=== PATIENT | female | born 1980 | race Caucasian/White ===

== ENCOUNTER 2016-10-22 05:26 | Inpatient (IN) | payer SELFPAY ==
[2016-10-22] MEDS ORDERED: Carboprost Tromethamine 250 MCG/1 ML Amp IM PRN (05:57)
[2016-10-22] MEDS ORDERED: Ampicillin 2 GM in Sodium Chloride 0.9% 100 ML IV ONE (05:57)
[2016-10-22] MEDS ORDERED: Sodium Chloride 0.9% 10 ML Syringe FLUSH PRN (05:57)
[2016-10-22] MEDS ORDERED: Sodium Chloride 0.9% 2.5 ML Syringe FLUSH PRN (05:57)
[2016-10-22] MEDS ORDERED: Nalbuphine 10 MG/1 ML Vial IVPUSH PRN ×3 (05:57→18:22)
[2016-10-22] MEDS ORDERED: Methylergonovine 0.2 MG/1 ML Amp IM PRN (05:57)
[2016-10-22] MEDS ORDERED: Butorphanol 1 MG/ML SDV IVPUSH PRN (05:57)
[2016-10-22] MEDS ORDERED: Lidocaine 1% 50 ML MDV INJECT PRN (05:57)
[2016-10-22] MEDS ORDERED: Water For Irrigation,Sterile 1,000 ML Container IRR PRN (05:57)
[2016-10-22] MEDS ORDERED: Misoprostol 200 MCG Tab PO PRN (05:57)
[2016-10-22] MEDS ORDERED: Oxytocin/Lactated Ringers 30 UNIT/500 ML BAG IV SCH (06:00)
[2016-10-22] MEDS: Lactated Ringers 1,000 ML IV SCH ×3 (06:23→10:56)
--- NOTE | 2016-10-22 08:58 | PCM.LDHP ---
L&D History of Present Illness - General Date of Service: 10/22/16 Admit Problem/Dx: Patient Status Order with Admit Dx/Problem 10/22/16 05:57 Patient Status [ADT] Routine Admission Diagnosis/Problem Admission Diagnosis/Problem Source of Information: Patient History Limitations: Reports: No Limitations - History of Present Illness Improves with: Reports: None Worsens with: Reports: None Associated Symptoms: Reports: N - Related Data Allergies/Adverse Reactions: Allergies Allergy/AdvReac Type Severity Reaction Status Date / Time No Known Allergies Allergy Verified 03/03/16 08:52 Home Medications: Home Meds . [No Known Home Meds] 03/03/16 [History] Past Medical History - Past Health History Medical/Surgical History: Denies Medical/Surgical History HEENT History: Reports: Other (See Below) Other HEENT History: wearing eyeglasses occasionally MRI CT TECH History: Reports: - Infectious Disease History Infectious Disease History: Reports: Chicken Pox - Past Surgical History HEENT Surgical History: Reports: Other (See Below) Other HEENT Surgeries/Procedures: wisdom teeth extraction Social & Family History - Family History OBGYN: Reports: Oncologic: Reports: Breast - Tobacco Use Smoking Status *Q: Never Smoker Second Hand Smoke Exposure: No - Recreational Drug Use Recreational Drug Use: No H&P Review of Systems - Review of Systems: Review Of Systems: See Below General: Reports: No Symptoms HEENT: Reports: No Symptoms Pulmonary: Reports: No Symptoms Cardiovascular: Reports: No Symptoms Gastrointestinal: Reports: No Symptoms Genitourinary: Reports: No Symptoms Musculoskeletal: Reports: No Symptoms Skin: Reports: No Symptoms Psychiatric: Reports: No Symptoms Neurological: Reports: No Symptoms Hematologic/Lymphatic: Reports: No Symptoms Immunologic: Reports: No Symptoms L&D Exam - Exam Exam: See Below - Vital Signs Weight: 104.326 kg - OB Specific Fundal Height In cm: 38 Contraction Frequency (min): irregular Contraction Intensity: Moderate Movement: Active Heart Tones: Present Heart Rate (FHR) Variability: Moderate (6-25 bmp) Presentation: Vertex - Khan Score Khan Score Cervix Position: Midposition Khan Score Effacement: 31-50% Khan Score Dilation: 1-2 cm - Patient Data Lab Results last 24 hrs: Laboratory Results - last 24 hr 10/22/16 10/22/16 10/22/16 Range/Units 05:40 06:15 06:15 WBC 9.22 (4.0-11.0) K/uL RBC 4.08 L (4.30-5.90) M/uL Hgb 12.0 (12.0-16.0) g/dL Hct 36.9 (36.0-46.0) % MCV 90.4 (80.0-98.0) fL MCH 29.4 (27.0-32.0) pg MCHC 32.5 (31.0-37.0) g/dL RDW Std Deviation 46.1 (28.0-62.0) fl RDW Coeff of Subha 14 (11.0-15.0) % Plt Count 198 (150-400) K/uL MPV 12.00 (7.40-12.00) fL Nucleated RBC % 0.0 /100WBC Nucleated RBCs # 0 K/uL Membrane Rupture POSITIVE Urine Opiates Screen (NEGATIVE) Ur Oxycodone Screen (NEGATIVE) Urine Methadone Screen (NEGATIVE) Ur Barbiturates Screen (NEGATIVE) Ur Phencyclidine Scrn (NEGATIVE) Ur Amphetamine Screen (NEGATIVE) U Methamphetamines Scrn (NEGATIVE) U Benzodiazepines Scrn (NEGATIVE) U Cocaine Metab Screen (NEGATIVE) U Marijuana (THC) Screen (NEGATIVE) Blood Type O POSITIVE Antibody Screen NEGATIVE 10/22/16 Range/Units 06:45 WBC (4.0-11.0) K/uL RBC (4.30-5.90) M/uL Hgb (12.0-16.0) g/dL Hct (36.0-46.0) % MCV (80.0-98.0) fL MCH (27.0-32.0) pg MCHC (31.0-37.0) g/dL RDW Std Deviation (28.0-62.0) fl RDW Coeff of Subha (11.0-15.0) % Plt Count (150-400) K/uL MPV (7.40-12.00) fL Nucleated RBC % /100WBC Nucleated RBCs # K/uL Membrane Rupture Urine Opiates Screen NEGATIVE (NEGATIVE) Ur Oxycodone Screen NEGATIVE (NEGATIVE) Urine Methadone Screen NEGATIVE (NEGATIVE) Ur Barbiturates Screen NEGATIVE (NEGATIVE) Ur Phencyclidine Scrn NEGATIVE (NEGATIVE) Ur Amphetamine Screen NEGATIVE (NEGATIVE) U Methamphetamines Scrn NEGATIVE (NEGATIVE) U Benzodiazepines Scrn NEGATIVE (NEGATIVE) U Cocaine Metab Screen NEGATIVE (NEGATIVE) U Marijuana (THC) Screen NEGATIVE (NEGATIVE) Blood Type Antibody Screen Result Diagrams: 10/22/16 06:15 Problem List Initiated/Reviewed/Updated: Yes Orders Last 24hrs: Active Orders 24 hr Category Date Time Status Patient Status [ADT] Routine ADT 10/22/16 05:57 Active Heart Tones [RC] CONTINUOUS Care 10/22/16 05:57 Active Non Stress Test [RC] PER UNIT ROUTINE Care 10/22/16 05:57 Active May Shower [RC] ASDIRECTED Care 10/22/16 05:57 Active Notify Provider [RC] PRN Care 10/22/16 05:57 Active Up ad Kia [RC] ASDIRECTED Care 10/22/16 05:57 Active Vaginal Exam [RC] PRN Care 10/22/16 05:57 Active Vital Signs [RC] PER UNIT ROUTINE Care 10/22/16 05:57 Active Clear Liquid Diet [DIET] Diet 10/22/16 Breakfast Active Butorphanol [Stadol] Med 10/22/16 05:57 Active 1 mg IVPUSH Q1H PRN Carboprost Tromethamine [Hemabate DS] Med 10/22/16 05:57 Active 250 mcg IM ASDIRECTED PRN Lactated Ringers [Ringers, Lactated] 1,000 ml Med 10/22/16 06:00 Active IV ASDIRECTED Lidocaine 1% [Xylocaine 1%] Med 10/22/16 05:57 Active 50 ml INJECT .ONCE PRN Methylergonovine [Methergine] Med 10/22/16 05:57 Active 0.2 mg IM ASDIRECTED PRN Misoprostol [Cytotec] Med 10/22/16 05:57 Active 200 mcg PO .ONCE PRN Sodium Chloride 0.9% [Saline Flush] Med 10/22/16 05:57 Active 10 ml FLUSH ASDIRECTED PRN Sodium Chloride 0.9% [Saline Flush] Med 10/22/16 05:57 Active 2.5 ml FLUSH ASDIRECTED PRN Water For Irrigation,Sterile [Sterile Water for Med 10/22/16 05:57 Active Irrigation] 1,000 ml IRR ASDIRECTED PRN Scalp Electrode [WOMSER] Per Unit Routine Oth 10/22/16 05:57 Ordered Peripheral IV Insertion Adult [OM.PC] Routine Oth 10/22/16 05:57 Ordered Resuscitation Status Routine Resus Stat 10/22/16 05:57 Ordered Medication Orders Butorphanol Tartrate (Stadol) 1 mg IVPUSH Q1H PRN PRN Reason: Pain Carboprost Tromethamine (Hemabate Ds) 250 mcg IM ASDIRECTED PRN PRN Reason: Post Hemorrhage Lactated Ringer's (Ringers, Lactated) 1,000 mls @ 150 mls/hr IV ASDIRECTED PRE[facility] Last Admin: 10/22/16 06:23 Dose: 150 mls/hr Lidocaine HCl (Xylocaine 1%) 50 ml INJECT .ONCE PRN PRN Reason: Laceration repair Methylergonovine Maleate (Methergine) 0.2 mg IM ASDIRECTED PRN PRN Reason: Post Hemorrhage Misoprostol (Cytotec) 200 mcg PO .ONCE PRN PRN Reason: Post Hemorrhage Sodium Chloride (Saline Flush) 10 ml FLUSH ASDIRECTED PRN PRN Reason: Keep Vein Open Sodium Chloride (Saline Flush) 2.5 ml FLUSH ASDIRECTED PRN PRN Reason: Keep Vein Open Sterile Water (Sterile Water For Irrigation) 1,000 ml IRR ASDIRECTED PRN PRN Reason: delivery Assessment/Plan Comment:: Term P5005 had C/section in her last 3 years ago because of Breech presentation. she was seen once in our clinic early in this and was told she is due in late September. She was presented with with SROm that was confirmed Pt have Moderate irregular contraction. CX. 3/50/V/-3.Plane to admit obtain her record for her C/section. She is a candidate for VEBC.
[2016-10-22] MEDS ORDERED: Phenylephrine 10 MG in Sodium Chloride 0.9% 99 ML IV ONE (10:30)
[2016-10-22] MEDS ORDERED: Morphine PF 10 MG/10 ML SDV ONE (10:36)
[2016-10-22] MEDS ORDERED: Phenylephrine 10 MG in Sodium Chloride 0.9% 99 ML IV PRN (10:36)
--- NOTE | 2016-10-22 10:38 | PCM.PREANE ---
Preanesthetic Assessment - Anesthesia/Transfusion/Family Hx Anesthesia History: Prior Anesthesia Without Reaction Family History of Anesthesia Reaction: No Transfusion History: No Prior Transfusion(s) Intubation History: Unknown - Review of Systems General: No Symptoms Pulmonary: No Symptoms Cardiovascular: No Symptoms Gastrointestinal: No symptoms Neurological: No Symptoms Other: Reports: None - Physical Assessment Height: 1.75 m Weight: 104.326 kg ASA Class: 2 Mental Status: Alert & Oriented x3 Airway Class: Mallampati = 2 Dentition: Reports: Normal Dentition Thyro-Mental Finger Breadths: 3 Mouth Opening Finger Breadths: 3 ROM/Head Extension: Full Lungs: Clear to auscultation, Normal respiratory effort Cardiovascular: Regular Rate, Regular Rhythm - Lab Values: Laboratory Last Values WBC 9.22 K/uL (4.0-11.0) 10/22/16 06:15 RBC 4.08 M/uL (4.30-5.90) L 10/22/16 06:15 Hgb 12.0 g/dL (12.0-16.0) 10/22/16 06:15 Hct 36.9 % (36.0-46.0) 10/22/16 06:15 MCV 90.4 fL (80.0-98.0) 10/22/16 06:15 MCH 29.4 pg (27.0-32.0) 10/22/16 06:15 MCHC 32.5 g/dL (31.0-37.0) 10/22/16 06:15 RDW Std Deviation 46.1 fl (28.0-62.0) 10/22/16 06:15 RDW Coeff of Subha 14 % (11.0-15.0) 10/22/16 06:15 Plt Count 198 K/uL (150-400) 10/22/16 06:15 MPV 12.00 fL (7.40-12.00) 10/22/16 06:15 Nucleated RBC % 0.0 /100WBC 10/22/16 06:15 Nucleated RBCs # 0 K/uL 10/22/16 06:15 Membrane Rupture POSITIVE 10/22/16 05:40 Urine Opiates Screen NEGATIVE (NEGATIVE) 10/22/16 06:45 Ur Oxycodone Screen NEGATIVE (NEGATIVE) 10/22/16 06:45 Urine Methadone Screen NEGATIVE (NEGATIVE) 10/22/16 06:45 Ur Barbiturates Screen NEGATIVE (NEGATIVE) 10/22/16 06:45 Ur Phencyclidine Scrn NEGATIVE (NEGATIVE) 10/22/16 06:45 Ur Amphetamine Screen NEGATIVE (NEGATIVE) 10/22/16 06:45 U Methamphetamines Scrn NEGATIVE (NEGATIVE) 10/22/16 06:45 U Benzodiazepines Scrn NEGATIVE (NEGATIVE) 10/22/16 06:45 U Cocaine Metab Screen NEGATIVE (NEGATIVE) 10/22/16 06:45 U Marijuana (THC) Screen NEGATIVE (NEGATIVE) 10/22/16 06:45 Blood Type O POSITIVE 10/22/16 06:15 Antibody Screen NEGATIVE 10/22/16 06:15 - Allergies Allergies/Adverse Reactions: Allergies Allergy/AdvReac Type Severity Reaction Status Date / Time No Known Allergies Allergy Verified 03/03/16 08:52 - Blood Blood Available: No - Anesthesia Plan Pre-Op Medication Ordered: None - Acknowledgements Anesthesia Type Planned: Spinal Pt an Appropriate Candidate for the Planned Anesthesia: Yes Alternatives and Risks of Anesthesia Discussed w Pt/Guardian: Yes Pt/Guardian Understands and Agrees with Anesthesia Plan: Yes PreAnesthesia Questionnaire - Past Health History Medical/Surgical History: Denies Medical/Surgical History HEENT History: Reports: Other (See Below) Other HEENT History: wearing eyeglasses occasionally [employer] History: Reports: Endocrine/Metabolic History: Reports: Obesity/BMI 30+ - Infectious Disease History Infectious Disease History: Reports: Chicken Pox - Past Surgical History HEENT Surgical History: Reports: Other (See Below) Other HEENT Surgeries/Procedures: wisdom teeth extraction Female Surgical History: Reports: Section - SUBSTANCE USE Smoking Status *Q: Never Smoker Second Hand Smoke Exposure: No Recreational Drug Use History: No - HOME MEDS Home Medications: Home Meds . [No Known Home Meds] 03/03/16 [History] - CURRENT (IN HOUSE) MEDS Current Meds: Current Medications Butorphanol Tartrate (Stadol) 1 mg IVPUSH Q1H PRN PRN Reason: Pain Carboprost Tromethamine (Hemabate Ds) 250 mcg IM ASDIRECTED PRN PRN Reason: Post Hemorrhage Lactated Ringer's (Ringers, Lactated) 1,000 mls @ 150 mls/hr IV ASDIRECTED [facility] Last Admin: 10/22/16 10:28 Dose: 150 mls/hr Ampicillin Sodium 1 gm/ Sodium (Chloride) 50 mls @ 100 mls/hr IV Q4HR [facility] Phenylephrine HCl 10 mg/ (Sodium Chloride) 100 mls @ 60 mls/hr IV ASDIRECTED ONE; 0.1 MG/MIN PRN Reason: Protocol Stop: 10/22/16 12:09 Phenylephrine HCl 10 mg/ (Sodium Chloride) 100 mls @ 60 mls/hr IV ASDIRECTED PRN; Protocol; 0.1 MG/MIN PRN Reason: HYPOTENSION Lidocaine HCl (Xylocaine 1%) 50 ml INJECT .ONCE PRN PRN Reason: Laceration repair Methylergonovine Maleate (Methergine) 0.2 mg IM ASDIRECTED PRN PRN Reason: Post Hemorrhage Misoprostol (Cytotec) 200 mcg PO .ONCE PRN PRN Reason: Post Hemorrhage Sodium Chloride (Saline Flush) 10 ml FLUSH ASDIRECTED PRN PRN Reason: Keep Vein Open Sodium Chloride (Saline Flush) 2.5 ml FLUSH ASDIRECTED PRN PRN Reason: Keep Vein Open Sterile Water (Sterile Water For Irrigation) 1,000 ml IRR ASDIRECTED PRN PRN Reason: delivery Discontinued Medications Ampicillin Sodium 2 gm/ Sodium (Chloride) 100 mls @ 200 mls/hr IV ONETIME ONE Stop: 10/22/16 06:26 Last Admin: 10/22/16 06:24 Dose: 200 mls/hr Oxytocin/Lactated Ringer's (Pitocin In Lr 30 Units/500 Ml) 30 unit in 500 mls @ 999 mls/hr IV TITRATE PRESTON; 999 MUNITS/MIN PRN Reason: Protocol Stop: 10/22/16 06:31 Nalbuphine HCl (Nubain) 10 mg IVPUSH Q1H PRN PRN Reason: Pain (severe 7-10) Stop: 10/22/16 07:58
[2016-10-22] MEDS: Ampicillin 1 GM in Sodium Chloride 0.9% 50 ML IV SCH (10:53)
[2016-10-22] MEDS ORDERED: Oxytocin 10 Units/1 ML SDV ONE ×2 (11:27→11:51)
[2016-10-22] MEDS ORDERED: Propofol 200 MG/20 ML SDV ONE (11:28)
[2016-10-22] MEDS ORDERED: Acetaminophen/oxyCODONE 325-5 MG Tab PO PRN ×2 (11:43→18:03)
[2016-10-22] MEDS ORDERED: fentaNYL 100 MCG/2 ML SDV IVPUSH PRN (11:43)
[2016-10-22] MEDS ORDERED: Ondansetron 4 MG/2 ML SDV ONE (11:51)
[2016-10-22] MEDS ORDERED: Hetastarch in NS 500 ML ONE (11:55)
[2016-10-22] MEDS ORDERED: Octyl 2-Cyanoacrylate 1 Tube ONE (12:06)
[2016-10-22] MEDS ORDERED: Phenylephrine/Normal Saline 100 MCG/ML 10 ML Syringe ONE (12:11)
[2016-10-22] MEDS ORDERED: Lanolin 100% Cream 7 GM Tube TOP PRN (12:53)
[2016-10-22] MEDS ORDERED: diphenhydrAMINE 50 MG/ML SDV IVPUSH PRN (12:53)
[2016-10-22] MEDS ORDERED: Ondansetron 4 MG/2 ML SDV IV PRN (12:53)
[2016-10-22] MEDS ORDERED: Bisacodyl 10 MG Supp RECTAL PRN (12:53)
[2016-10-22] MEDS ORDERED: Ibuprofen 800 MG Tab PO PRN (12:53)
--- NOTE | 2016-10-22 12:59 | PCM.OPNOTE ---
- General Post-Op/Procedure Note Date of Surgery/Procedure: 10/22/16 Operative Procedure(s): repeat C/ Section Pre Op Diagnosis: Term repeat C/section Post-Op Diagnosis: Same Anesthesia Technique: Spinal Primary Surgeon: Jonathan Terry Financial Planning Assistant: Elizabeth Lawrence EBL in mLs: 1,500 Complications: None Condition: Good
[2016-10-22] MEDS ORDERED: Lactated Ringers 1,000 ML IV SCH (13:00)
--- NOTE | 2016-10-22 13:01 | PCM.POSTAN ---
POST ANESTHESIA ASSESSMENT - MENTAL STATUS Mental Status: alert, oriented - RESPIRATORY Respiratory Status: respiratory rate WNL, airway patent, O2 saturation stable - CARDIOVASCULAR CV Status: pulse rate WNL, blood pressure stable - GASTROINTESTINAL GI Status: no symptoms - PAIN Pain Score: 3 - POST OP HYDRATION Hydration Status: adequate & stable
[2016-10-22] MEDS: Ketorolac 30 MG/ML SDV IVPUSH SCH ×2 (13:04→19:05)
--- NOTE | 2016-10-22 18:24 | OR ---
SURGEON: Jonathan Terry MD DATE OF PROCEDURE: 10/22/2016 PREOPERATIVE DIAGNOSIS: Term , previous section POSTOPERATIVE DIAGNOSIS: Term , previous section. OPERATION PERFORMED: Repeat low transverse section. LEATHER FLESHER: LIZZETTE Carbone. ANESTHESIA: Spinal by Mary Ferrer and Dr. Quintero. ESTIMATED BLOOD LOSS: 1500 mL. COMPLICATIONS: Extension of uterine incision laterally on the left side resulting in more than usual bleeding during the section. INDICATION: This patient is para 5-0-0-5. She had four normal spontaneous vaginal deliveries. She had one section, the last one for a breech presentation three years ago. The patient had no care. She is seen in the emergency room once and at that time, she has established a due date of October 12, 2016. The patient does not meet the criteria for trial of labor, so we elected to repeat her section. PROCEDURE IN DETAIL: The patient was brought to the OR, properly identified, and after adequate level of spinal anesthesia with a Burton catheter in the bladder, the patient was prepped and draped in sterile fashion as usual. Low transverse Pfannenstiel skin incision was done. Jamarcus's fascia, rectus fascia opened in direction of the incision. The 2 recti muscles and peritoneal cavity was entered. Bladder flap was raised in the usual manner, pushing the bladder away from the lower uterine segment, low transverse incision is done, extended manually. Hand and fetus were delivered, female, cried immediately. score reported to be 8 and 9. Weight is not available. The placenta delivered spontaneous, complete, and intact. It was noticed at this time that there was a little bit of extension of the incision laterally in the left side and there was an area of bleeding from the lateral incision. Ring forceps was applied and using 2-0 Vicryl, suture was used to suture ligate this bleeding and the bleeding stopped. Once the bleeding, we proceeded to close the lower uterine segment with 2-0 Vicryl interlocking in a continuous in 2 layers. Inspection of the entire operative field, there was no oozing or bleeding from the incision. Then reperitonealization done with 3-0 Vicryl continuous and then the peritoneal cavity is closed with 3-0 Vicryl continuous. The rectus fascia closed with #1 PDS double strand continuous and the Jamarcus's fascia with 3-0 Vicryl continuous. The skin closed with a #5 monofilament suture in a subcuticular fashion. Instrument and sponge count was correct. The patient tolerated the procedure well, went to recovery room in stable general condition. GEREMIAS TAM /[id number]
--- NOTE | 2016-10-22 19:35 | PCM48HPAN ---
Post Anesthesia Note - EVALUATION WITHIN 48HRS OF ANESTHETIC Vital Signs in Normal Range: Yes Patient Participated in Evaluation: Yes Respiratory Function Stable: Yes Airway Patent: Yes Cardiovascular Function Stable: Yes Hydration Status Stable: Yes Pain Control Satisfactory: Yes Nausea and Vomiting Control Satisfactory: Yes Mental Status Recovered: Yes - COMMENTS/OBSERVATIONS Free Text/Narrative:: Pt denies problems from spinal anesthesia. Does have Hgb of 7.[address] Terry is aware. Orders given to nursing staff to transfuse 2 units PRBC tonight. Pt is hemodynamically stable at this time.
[2016-10-22] MEDS: Docusate Sodium 100 MG Cap PO SCH (21:59)
[2016-10-23] MEDS: Ketorolac 30 MG/ML SDV IVPUSH SCH ×3 (01:21→13:31)
[2016-10-23] MEDS: Ampicillin 1 GM in Sodium Chloride 0.9% 50 ML IV SCH ×3 (04:46→05:18)
[2016-10-23] MEDS: Docusate Sodium 100 MG Cap PO SCH ×2 (09:28→21:00)
[2016-10-23] MEDS: Acetaminophen/oxyCODONE 325-5 MG Tab PO PRN ×2 (15:06→22:25)
--- NOTE | 2016-10-23 18:53 | PCM.PNPP ---
- General Info Date of Service: 10/23/16 Functional Status: Reports: pain controlled - Review of Systems General: Reports: No Symptoms HEENT: Reports: no symptoms Pulmonary: Reports: no symptoms Cardiovascular: Reports: No Symptoms Gastrointestinal: Reports: No symptoms Genitourinary: Reports: no symptoms Musculoskeletal: Reports: no symptoms Skin: Reports: no symptoms Neurological: Reports: No Symptoms Psychiatric: Reports: no symptoms - General Info Date of Service: 10/23/16 - Patient Data Vital Signs - most recent: Last Vital Signs Temp 36.4 C 10/23/16 17:41 Pulse 84 10/23/16 17:41 Resp 20 10/23/16 17:41 BP 132/83 10/23/16 17:41 Pulse Ox 97 10/23/16 17:41 Weight - most recent: 104.326 kg I&O - last 24 hours: Intake & Output 10/23/16 10/23/16 10/23/16 06:59 14:59 22:59 Intake Total 1858 Output Total 1825 500 Balance 33 -500 Lab Results - last 24 hrs: Laboratory Results - last 24 hr 10/22/16 10/22/16 10/23/16 Range/Units 06:15 19:08 04:57 Hgb 7.8 L 9.2 L (12.0-16.0) g/dL Hct 24.3 L 28.1 L (36.0-46.0) % Blood Type O POSITIVE Antibody Screen NEGATIVE Crossmatch See Detail Med Orders - Current: Current Medications Bisacodyl (Dulcolax) 10 mg RECTAL .ONCE PRN PRN Reason: Constipation Diphenhydramine HCl (Benadryl) 25 mg IVPUSH Q6H PRN PRN Reason: Itching or Nausea Last Admin: 10/22/16 19:09 Dose: 25 mg Docusate Sodium (Colace) 100 mg PO BID [facility] Last Admin: 10/23/16 09:28 Dose: 100 mg Emollient Ointment (Lansinoh Hpa) 0 gm TOP ASDIRECTED PRN PRN Reason: Sore Nipples Ampicillin Sodium 1 gm/ Sodium (Chloride) 50 mls @ 100 mls/hr IV Q4HR [facility] Last Admin: 10/23/16 05:18 Dose: Not Given Phenylephrine HCl 10 mg/ (Sodium Chloride) 100 mls @ 60 mls/hr IV ASDIRECTED PRN; Protocol; 0.1 MG/MIN PRN Reason: HYPOTENSION Lactated Ringer's (Ringers, Lactated) 1,000 mls @ 125 mls/hr IV ASDIRECTED [facility] Last Admin: 10/22/16 16:26 Dose: 125 mls/hr Ibuprofen (Motrin) 800 mg PO Q8H PRN PRN Reason: mild pain or fever Ondansetron HCl (Zofran) 4 mg IV Q4H PRN PRN Reason: Nausea/Vomiting Oxycodone/Acetaminophen (Percocet 325-5 Mg) 1 tab PO Q4H PRN PRN Reason: Pain (moderate 4-6) Last Admin: 10/23/16 15:06 Dose: 1 tab Oxycodone/Acetaminophen (Percocet 325-5 Mg) 2 tab PO Q4H PRN PRN Reason: Pain (moderate 4-6) Sodium Chloride (Saline Flush) 10 ml FLUSH ASDIRECTED PRN PRN Reason: Keep Vein Open Sodium Chloride (Saline Flush) 2.5 ml FLUSH ASDIRECTED PRN PRN Reason: Keep Vein Open Discontinued Medications Butorphanol Tartrate (Stadol) 1 mg IVPUSH Q1H PRN PRN Reason: Pain Carboprost Tromethamine (Hemabate Ds) 250 mcg IM ASDIRECTED PRN PRN Reason: Post Hemorrhage Fentanyl (Sublimaze) 50 mcg IVPUSH Q5M PRN PRN Reason: Pain (severe 7-10) Stop: 10/23/16 11:44 Ampicillin Sodium 2 gm/ Sodium (Chloride) 100 mls @ 200 mls/hr IV ONETIME ONE Stop: 10/22/16 06:26 Last Admin: 10/22/16 06:24 Dose: 200 mls/hr Lactated Ringer's (Ringers, Lactated) 1,000 mls @ 150 mls/hr IV ASDIRECTED [facility] Last Admin: 10/22/16 10:56 Dose: 150 mls/hr Oxytocin/Lactated Ringer's (Pitocin In Lr 30 Units/500 Ml) 30 unit in 500 mls @ 999 mls/hr IV TITRATE [facility]; 999 MUNITS/MIN PRN Reason: Protocol Stop: 10/22/16 06:31 Last Admin: 10/23/16 04:47 Dose: Not Given Phenylephrine HCl 10 mg/ (Sodium Chloride) 100 mls @ 60 mls/hr IV ASDIRECTED ONE; 0.1 MG/MIN PRN Reason: Protocol Stop: 10/22/16 12:09 Hetastarch/Sodium Chloride (Hetastarch 6% In Normal Saline) Confirm Administered Dose 500 mls @ as directed .ROUTE .STK-MED ONE Stop: 10/22/16 11:56 Ketorolac Tromethamine (Toradol) 30 mg IVPUSH Q6H [facility] Stop: 10/23/16 13:01 Last Admin: 10/23/16 13:31 Dose: 30 mg Lidocaine HCl (Xylocaine 1%) 50 ml INJECT .ONCE PRN PRN Reason: Laceration repair Methylergonovine Maleate (Methergine) 0.2 mg IM ASDIRECTED PRN PRN Reason: Post Hemorrhage Misoprostol (Cytotec) 200 mcg PO .ONCE PRN PRN Reason: Post Hemorrhage Morphine Sulfate (Duramorph Pf) Confirm Administered Dose 10 mg .ROUTE .STK-MED ONE Stop: 10/22/16 10:37 Nalbuphine HCl (Nubain) 10 mg IVPUSH Q1H PRN PRN Reason: Pain (severe 7-10) Stop: 10/22/16 07:58 Nalbuphine HCl (Nubain) 5 mg IVPUSH Q3H PRN PRN Reason: Pruritis Stop: 10/23/16 11:44 Nalbuphine HCl (Nubain) 2.5 - 10 mg IVPUSH Q3H PRN PRN Reason: Pruritis Stop: 10/23/16 11:22 Octyl Cyanoacrylate (Dermabond Advance) Confirm Administered Dose 1 applic .ROUTE .STK-MED ONE Stop: 10/22/16 12:07 Ondansetron HCl (Zofran) Confirm Administered Dose 4 mg .ROUTE .STK-MED ONE Stop: 10/22/16 11:52 Oxycodone/Acetaminophen (Percocet 325-5 Mg) 2 tab PO ONETIME PRN PRN Reason: Pain (moderate 4-6) Oxycodone/Acetaminophen (Percocet 325-5 Mg) 2 tab PO Q4H PRN PRN Reason: Pain Stop: 10/23/16 11:45 Oxytocin (Pitocin) Confirm Administered Dose 20 unit .ROUTE .STK-MED ONE Stop: 10/22/16 11:28 Oxytocin (Pitocin) Confirm Administered Dose 10 unit .ROUTE .STK-MED ONE Stop: 10/22/16 11:52 Phenylephrine HCl (Phenylephrine In Ns 100 Mcg/Ml) Confirm Administered Dose 1 mg .ROUTE .STK-MED ONE Stop: 10/22/16 12:12 Propofol (Diprivan 20 Ml) Confirm Administered Dose 200 mg .ROUTE .STK-MED ONE Stop: 10/22/16 11:29 Sterile Water (Sterile Water For Irrigation) 1,000 ml IRR ASDIRECTED PRN PRN Reason: delivery - Interaction Infant Disposition, : [place] in Room with Family Interaction: Holding Feeding: Attempted ; Nursed Fair/Poor Support Person: Significant Other - Recovery Exam Fundal Tone: Firm Fundal Level: 1 Fingerbreadths Below Umbilicus Fundal Placement: Midline Lochia Amount: Scant Lochia Color: Rubra/Red Perineum Description: Intact, Minimal Bruising/Swelling Episiotomy/Laceration: None Bladder Status: Indwelling Catheter in Place Urinary Elimination: Indwelling Catheter - Exam General: alert, oriented HEENT: Pupils equal Neck: supple Lungs: Clear to auscultation, Normal respiratory effort Cardiovascular: Regular Rate, Regular Rhythm Abdomen: bowel sounds present, soft, no tenderness, no distension Extremities: no edema Skin: warm, dry, intact Wound/Incisions: healing well Neurological: no new focal deficit Psy/Mental Status: alert, normal affect, normal mood - Problem List Review Problem List Initiated/Reviewed/Updated: Yes - My Orders Last 24 Hours: My Active Orders 10/22/16 21:00 Docusate Sodium [Colace] 100 mg PO BID - Assessment Assessment:: doing well - Plan Plan:: Term P5005 had C/section in her last 3 years ago because of Breech presentation. she was seen once in our clinic early in this and was told she is due in late September. She was presented with with SROm that was confirmed Pt have Moderate irregular contraction. CX. 3/50/V/-3.Plane to admit obtain her record for her C/section. She is a candidate for VEBC.
[2016-10-24 08:07] VITALS: BP 127/62
[2016-10-24] MEDS: Docusate Sodium 100 MG Cap PO SCH (08:27)
[2016-10-24] MEDS: Acetaminophen/oxyCODONE 325-5 MG Tab PO PRN ×2 (08:31→12:07)
--- NOTE | 2016-10-24 09:07 | PCM.DCSUM1 ---
Discharge Summary - Discharge Data Discharge Date: 10/24/16 Discharge Disposition: Home, Self-Care 01 Condition: Good - Patient Summary/Data Operative Procedure(s) Performed: repeat C/ Section - Patient Instructions Diet: Usual Diet as Tolerated Activity: As Tolerated Driving: Do Not Drive Showering/Bathing: May Shower Wound/Incision Care: Keep Operative Site/Wound Site Clean and Dry Notify Provider of: Fever, Increased Pain, Swelling and Redness, Drainage, Nausea and/or Vomiting - Discharge Plan Home Medications: Home Meds . [No Known Home Meds] 03/03/16 [History] Referrals: [facility] [Outside] Polina Fields CNM [Mid-] - 12/03/16 9:30 am - General Info Date of Service: 10/24/16 Functional Status: Reports: pain controlled - Review of Systems General: Reports: No Symptoms HEENT: Reports: no symptoms Pulmonary: Reports: no symptoms Cardiovascular: Reports: No Symptoms Gastrointestinal: Reports: No symptoms Genitourinary: Reports: no symptoms Musculoskeletal: Reports: no symptoms Skin: Reports: no symptoms Neurological: Reports: No Symptoms Psychiatric: Reports: no symptoms - Patient Data Vitals - Most Recent: Last Vital Signs Temp 36.4 C 10/24/16 08:07 Pulse 86 10/24/16 08:07 Resp 18 10/24/16 08:07 BP 127/62 10/24/16 08:07 Pulse Ox 98 10/24/16 08:07 Weight - Most Recent: 104.326 kg Med Orders - Current: Current Medications Bisacodyl (Dulcolax) 10 mg RECTAL .ONCE PRN PRN Reason: Constipation Diphenhydramine HCl (Benadryl) 25 mg IVPUSH Q6H PRN PRN Reason: Itching or Nausea Last Admin: 10/22/16 19:09 Dose: 25 mg Docusate Sodium (Colace) 100 mg PO BID PRESTON Last Admin: 10/24/16 08:27 Dose: 100 mg Emollient Ointment (Lansinoh Hpa) 0 gm TOP ASDIRECTED PRN PRN Reason: Sore Nipples Ampicillin Sodium 1 gm/ Sodium (Chloride) 50 mls @ 100 mls/hr IV Q4HR PRESTON Last Admin: 10/23/16 05:18 Dose: Not Given Phenylephrine HCl 10 mg/ (Sodium Chloride) 100 mls @ 60 mls/hr IV ASDIRECTED PRN; Protocol; 0.1 MG/MIN PRN Reason: HYPOTENSION Lactated Ringer's (Ringers, Lactated) 1,000 mls @ 125 mls/hr IV ASDIRECTED PRESTON Last Admin: 10/22/16 16:26 Dose: 125 mls/hr Ibuprofen (Motrin) 800 mg PO Q8H PRN PRN Reason: mild pain or fever Last Admin: 10/24/16 08:27 Dose: 800 mg Ondansetron HCl (Zofran) 4 mg IV Q4H PRN PRN Reason: Nausea/Vomiting Oxycodone/Acetaminophen (Percocet 325-5 Mg) 1 tab PO Q4H PRN PRN Reason: Pain (moderate 4-6) Last Admin: 10/23/16 22:25 Dose: 1 tab Oxycodone/Acetaminophen (Percocet 325-5 Mg) 2 tab PO Q4H PRN PRN Reason: Pain (moderate 4-6) Last Admin: 10/24/16 08:31 Dose: 2 tab Sodium Chloride (Saline Flush) 10 ml FLUSH ASDIRECTED PRN PRN Reason: Keep Vein Open Sodium Chloride (Saline Flush) 2.5 ml FLUSH ASDIRECTED PRN PRN Reason: Keep Vein Open Discontinued Medications Butorphanol Tartrate (Stadol) 1 mg IVPUSH Q1H PRN PRN Reason: Pain Carboprost Tromethamine (Hemabate Ds) 250 mcg IM ASDIRECTED PRN PRN Reason: Post Hemorrhage Fentanyl (Sublimaze) 50 mcg IVPUSH Q5M PRN PRN Reason: Pain (severe 7-10) Stop: 10/23/16 11:44 Ampicillin Sodium 2 gm/ Sodium (Chloride) 100 mls @ 200 mls/hr IV ONETIME ONE Stop: 10/22/16 06:26 Last Admin: 10/22/16 06:24 Dose: 200 mls/hr Lactated Ringer's (Ringers, Lactated) 1,000 mls @ 150 mls/hr IV ASDIRECTED PRESTON Last Admin: 10/22/16 10:56 Dose: 150 mls/hr Oxytocin/Lactated Ringer's (Pitocin In Lr 30 Units/500 Ml) 30 unit in 500 mls @ 999 mls/hr IV TITRATE PRESTON; 999 MUNITS/MIN PRN Reason: Protocol Stop: 10/22/16 06:31 Last Admin: 10/23/16 04:47 Dose: Not Given Phenylephrine HCl 10 mg/ (Sodium Chloride) 100 mls @ 60 mls/hr IV ASDIRECTED ONE; 0.1 MG/MIN PRN Reason: Protocol Stop: 10/22/16 12:09 Hetastarch/Sodium Chloride (Hetastarch 6% In Normal Saline) Confirm Administered Dose 500 mls @ as directed .ROUTE .STK-MED ONE Stop: 10/22/16 11:56 Ketorolac Tromethamine (Toradol) 30 mg IVPUSH Q6H PRESTON Stop: 10/23/16 13:01 Last Admin: 10/23/16 13:31 Dose: 30 mg Lidocaine HCl (Xylocaine 1%) 50 ml INJECT .ONCE PRN PRN Reason: Laceration repair Methylergonovine Maleate (Methergine) 0.2 mg IM ASDIRECTED PRN PRN Reason: Post Hemorrhage Misoprostol (Cytotec) 200 mcg PO .ONCE PRN PRN Reason: Post Hemorrhage Morphine Sulfate (Duramorph Pf) Confirm Administered Dose 10 mg .ROUTE .STK-MED ONE Stop: 10/22/16 10:37 Nalbuphine HCl (Nubain) 10 mg IVPUSH Q1H PRN PRN Reason: Pain (severe 7-10) Stop: 10/22/16 07:58 Nalbuphine HCl (Nubain) 5 mg IVPUSH Q3H PRN PRN Reason: Pruritis Stop: 10/23/16 11:44 Nalbuphine HCl (Nubain) 2.5 - 10 mg IVPUSH Q3H PRN PRN Reason: Pruritis Stop: 10/23/16 11:22 Octyl Cyanoacrylate (Dermabond Advance) Confirm Administered Dose 1 applic .ROUTE .STK-MED ONE Stop: 10/22/16 12:07 Ondansetron HCl (Zofran) Confirm Administered Dose 4 mg .ROUTE .STK-MED ONE Stop: 10/22/16 11:52 Oxycodone/Acetaminophen (Percocet 325-5 Mg) 2 tab PO ONETIME PRN PRN Reason: Pain (moderate 4-6) Oxycodone/Acetaminophen (Percocet 325-5 Mg) 2 tab PO Q4H PRN PRN Reason: Pain Stop: 10/23/16 11:45 Oxytocin (Pitocin) Confirm Administered Dose 20 unit .ROUTE .STK-MED ONE Stop: 10/22/16 11:28 Oxytocin (Pitocin) Confirm Administered Dose 10 unit .ROUTE .STK-MED ONE Stop: 10/22/16 11:52 Phenylephrine HCl (Phenylephrine In Ns 100 Mcg/Ml) Confirm Administered Dose 1 mg .ROUTE .STK-MED ONE Stop: 10/22/16 12:12 Propofol (Diprivan 20 Ml) Confirm Administered Dose 200 mg .ROUTE .STK-MED ONE Stop: 10/22/16 11:29 Sterile Water (Sterile Water For Irrigation) 1,000 ml IRR ASDIRECTED PRN PRN Reason: delivery - Exam General: Reports: alert, oriented HEENT: Reports: Pupils equal, Pupils reactive, EOMI, Mucous membr. moist/pink Neck: Reports: supple Lungs: Reports: Clear to auscultation, Normal respiratory effort Cardiovascular: Reports: Regular Rate, Regular Rhythm Abdomen: Reports: bowel sounds present, soft, no tenderness, no distension (Female) Exam: Normal External Exam, Normal Speculum Exam, Normal Bimanual Exam Rectal (Female) Exam: Normal Exam, Normal Rectal Tone Back Exam: Reports: Normal Inspection, Full Range of Motion Extremities: Reports: no edema, normal pulses Skin: Reports: warm, dry, intact Wound/Incisions: Reports: healing well Neurological: Reports: no new focal deficit Psy/Mental Status: Reports: alert, normal affect, normal mood *Q Meaningful Use (DIS) - VTE *Q VTE Criteria *Q: - Stroke *Q Stroke Criteria *Q: - AMI *Q AMI Criteria *Q:
== END 2016-10-24 12:35 | disposition home or self-care (01) | DRG 766 ==
LOC: MW.OBCHECK 05:26 → MW.OB 05:30 → MW.OBCHECK 05:57 → OBSVTOIN 11:36 → MW.OB 14:48
PROVIDERS: ADMIT Obstetrics & Gynecology; ATTEND Obstetrics & Gynecology
PROC: 10D00Z1 Extraction of Products of Conception, Low, Open Approach (ICD-10-PCS; principal; 2016-10-22)
DX: O34.211 Maternal care for low transverse scar from previous cesarean delivery (principal); O42.02 Full-term premature rupture of membranes, onset of labor within 24 hours of rupture; Z3A.41 41 weeks gestation of pregnancy; Z37.0 Single live birth
CPT/HCPCS: 01961; 36415; 36430; 80305; 84112; 85014; 85018; 85027; 86850; 86900; 86901; 86920; 86921; 86922; A9270-GY; J0290; J1200; J1885; J2270; J2405; J2590; J2704; J7030; J7050; J7120; P9016